=== PATIENT | male | born 1985 | race Caucasian/White ===

== ENCOUNTER → 2021-06-23 17:17 | Outpatient (CLI) | payer OTHER, SELFPAY ==
--- NOTE | ~2021-06-23 | XR_ITS ---
EXAMINATION: XR ankle LT min 3V DATE: 06/23/2021 18:10 INDICATION: Left ankle pain TECHNIQUE: Anteroposterior, lateral, mortise, and additional oblique view of the ankle were obtained. COMPARISON: None. FINDINGS: Heterotopic ossification distal to the lateral malleolus has a appearance of prior avulsion fracture. No definite acute fracture is identified. Ankle soft tissue swelling is present. A plantar calcaneal enthesophyte is noted. IMPRESSION: 1. Findings consistent with prior avulsion injury of the lateral malleolus without definite acute oss eous abnormality. Reviewed, dictated and finalized at location B. STITCHER IMPRESSION: 1. Findings consistent with prior avulsion injury of the lateral malleolus with out definite acute osseous abnormality.
== END ==
PROVIDERS: PCP Nurse Practitioner Family; Visit Provider Nurse Practitioner Family
DX: M25.572 Pain in left ankle and joints of left foot (principal)
CPT/HCPCS: 73610